=== PATIENT | female | born 1950 | race Caucasian/White ===

== ENCOUNTER 2018-03-20 11:48 | Day surgery (SDC) | payer MEDICARE ==
[~2018-03-20] VITALS: Ht 158.8 cm; Wt 81.6 kg
[2018-03-20] MEDS ORDERED: LACTATED RINGERS 1,000 ML IV SCH ×2 (12:24→21:00)
[2018-03-20] MEDS ORDERED: PLEASE ENTER HEIGHT AND WEIGHT MC SCH (13:00)
[2018-03-20] MEDS ORDERED: PLEASE ENTER ALLERGIES MC SCH (13:00)
[2018-03-20] MEDS ORDERED: TUMERIC PO (13:08)
[2018-03-20] MEDS ORDERED: ASPI-496 PO (13:08)
[2018-03-20] MEDS ORDERED: HYDR25TA6 PO (13:08)
[2018-03-20] MEDS ORDERED: MULT-658 PO (13:08)
[2018-03-20] MEDS ORDERED: AMLO5TAB7 PO (13:08)
[2018-03-20] MEDS ORDERED: OMEP10CA4 PO (13:08)
[2018-03-20] MEDS ORDERED: ATOR20TA9 PO (13:08)
[2018-03-20] MEDS ORDERED: CHOL200059 PO (13:08)
[2018-03-20 13:14] VITALS: BP 135/83
[2018-03-20 13:18] LABS: BASOPHILS # (AUTO) 0.03 x10^3/uL (0-0.1); BASOPHILS % (AUTO) 1 % (0-1); EOSINOPHILS # (AUTO) 0.27 x10^3/uL (0-0.4); EOSINOPHILS % (AUTO) 5 % (1-7); LYMPHOCYTES # (AUTO) 1.29 x10^3/uL (1-3.4); LYMPHOCYTES % (AUTO) 24 % (22-44); MD NO; MEAN CORPUSCULAR HEMOGLOBIN 29.6 pg (27.0-34.8); MEAN CORPUSCULAR HGB CONC 33.4 g/dL (32.4-35.8); MEAN CORPUSCULAR VOLUME 88.6 fL (80-100); MEAN PLATELET VOLUME 8.7 fL (7.4-10.4); MONOCYTES # (AUTO) 0.54 x10^3/uL (0.2-0.8); MONOCYTES % (AUTO) 10 % (2-9); NEUTROPHILS # (AUTO) 3.29 x10^3/uL (1.8-6.8); NEUTROPHILS % (AUTO) 61 % (42-75); PLATELET COUNT 320 x10^3/uL (130-400); RED BLOOD COUNT 4.78 x10^6/uL (3.82-5.3); RED CELL DISTRIBUTION WIDTH 14.9 % (9.6-15.2)
[2018-03-20] MEDS ORDERED: SCOPOLAMINE PATCH, 1.5MG PATCH.TD72 TD ONE (13:30)
[2018-03-20] MEDS ORDERED: ACETAMINOPHEN 500 MG TABLET PO ONE (13:30)
[2018-03-20] MEDS ORDERED: GABAPENTIN 300 MG CAPSULE PO ONE (13:30)
[2018-03-20] MEDS ORDERED: ONDANSETRON 2MG/ML, 2ML IVPush ONE (13:30)
[2018-03-20 13:31] LABS: ALANINE AMINOTRANSFERASE 48 U/L (12-78); ALBUMIN 4.1 g/dL (3.4-5.0); ANION GAP 8 mmol/L (5-15); CHLORIDE 106 mmol/L (98-107)
[2018-03-20 13:33] LABS: ALKALINE PHOSPHATASE 68 U/L (45-117); TOTAL PROTEIN 7.8 g/dL (6.4-8.2)
[2018-03-20] MEDS ORDERED: BUPIVACAINE/PF 0.5% ONE (14:00)
[2018-03-20] MEDS ORDERED: EPINEPHRINE 1 MG/ML, 1ML ONE (14:00)
[2018-03-20] MEDS ORDERED: ISOSULFAN BLUE 10 MG/ML, 5ML IV ONE (14:00)
[2018-03-20] MEDS ORDERED: MIDAZOLAM 1 MG/ML, 2ML ONE (14:27)
[2018-03-20] MEDS ORDERED: FENTANYL PF 250 MCG/5ML ONE (14:27)
[2018-03-20] MEDS ORDERED: cloniDINE/PF 100 MCG/ML, 10 ML ONE (15:01)
[2018-03-20] MEDS ORDERED: DEXAMETHASONE 4 MG/ML, 1ML ONE (16:43)
[2018-03-20] MEDS ORDERED: PROPOFOL 10 MG/ML, 20ML ONE (16:43)
[2018-03-20] MEDS ORDERED: ROCURONIUM 10 MG/ML,10ML ONE (16:43)
[2018-03-20] MEDS ORDERED: PHENYLEPHRINE 10 MG/ML ONE (16:43)
[2018-03-20] MEDS ORDERED: SUCCINYLCHOLINE 20 MG/ML, 10ML ONE (16:43)
[2018-03-20] MEDS ORDERED: CEFAZOLIN 1,000 MG ONE (16:43)
[2018-03-20] MEDS ORDERED: NEOSTIGMINE 1 MG/ML, 10ML ONE (16:43)
[2018-03-20] MEDS ORDERED: GLYCOPYRROLATE 0.2MG/1ML, 5ML ONE (16:43)
[2018-03-20] MEDS ORDERED: ONDANSETRON 2MG/ML, 2ML ONE (16:43)
[2018-03-20] MEDS ORDERED: ACETAMINOPHEN 650 MG/20.3 ML UDC ONE (19:22)
[2018-03-20] MEDS ORDERED: OXYcodone 5 MG/5 ML ORAL.SOL UDC ONE (19:23)
[2018-03-20] MEDS ORDERED: FENTANYL PF 100 MCG/2ML IV PRN (19:30)
[2018-03-20] MEDS ORDERED: OXYcodone 5 MG/5 ML ORAL.SOL UDC PO PRN (19:30)
[2018-03-20] MEDS ORDERED: ACETAMINOPHEN 325 MG TABLET PO PRN (19:30)
[2018-03-20] MEDS ORDERED: FENTANYL PF 100 MCG/2ML ONE (19:37)
[2018-03-20] MEDS ORDERED: ONDANSETRON 2MG/ML, 2ML IVPush PRN (21:00)
[2018-03-20] MEDS ORDERED: MORPHINE SULFATE 4 MG/ML, 1ML IVPush PRN (21:00)
== END 2018-03-20 23:59 | disposition home or self-care (01) ==
LOC: OUT 11:48 → 4NOR 20:05 → OUT 23:59
PROVIDERS: ATTEND Surgery
DX: D05.11 Intraductal carcinoma in situ of right breast (principal); R59.1 Generalized enlarged lymph nodes; N64.89 Other specified disorders of breast; F41.9 Anxiety disorder, unspecified; J45.909 Unspecified asthma, uncomplicated; K21.9 Gastro-esophageal reflux disease without esophagitis; E78.5 Hyperlipidemia, unspecified; I10 Essential (primary) hypertension; E66.9 Obesity, unspecified; Z79.82 Long term (current) use of aspirin; Z88.0 Allergy status to penicillin
CPT/HCPCS: 19301; 19318; 19366; 36415; 38525; 38792; 80053; 85025; 88307; 88333; 93005; A9541; C1729; J0171; J0330; J0690; J0735; J1100; J2250; J2370; J2405; J2704; J2710; J3010; J3490; J7120; G0378

== ENCOUNTER → 2018-04-06 | Outpatient (CLI) | payer MEDICARE ==
[~2018-04-06] MED LIST: AMLO5TAB7 PO; ASPI-496 PO; ATOR20TA9 PO; CHOL200059 PO; HYDR25TA6 PO; MULT-658 PO; OMEP10CA4 PO; TUMERIC PO
== END | disposition home or self-care (01) ==
LOC: ROC 10:41
PROVIDERS: ATTEND Radiology Radiation Oncology
DX: C50.411 Malignant neoplasm of upper-outer quadrant of right female breast (principal)
CPT/HCPCS: G0463

== ENCOUNTER 2018-04-19 08:20 | Day surgery (SDC) | payer MEDICARE ==
[~2018-04-19] VITALS: Ht 160 cm; Wt 81.2 kg
[~2018-04-19 08:20] MED LIST changes: +BUPIVACAINE/PF-EPI 0.5% 1:200K ONE; +HEPARIN 1,000 UNITS/ML, 10ML ONE
[2018-04-19] MEDS ORDERED: LACTATED RINGERS 1,000 ML IV SCH (08:46)
[2018-04-19] MEDS ORDERED: ONDANSETRON ODT 8 MG PO ONE (09:00)
[2018-04-19] MEDS ORDERED: ACETAMINOPHEN 500 MG TABLET PO ONE (09:00)
[2018-04-19] MEDS ORDERED: PLEASE ENTER HEIGHT AND WEIGHT MC SCH (09:00)
[2018-04-19] MEDS ORDERED: GABAPENTIN 300 MG CAPSULE PO ONE (09:00)
[2018-04-19 09:06] VITALS: BP 114/74
[2018-04-19 09:10] VITALS: BP 114/74
[2018-04-19] MEDS ORDERED: MIDAZOLAM 1 MG/ML, 2ML ONE (09:38)
[2018-04-19] MEDS ORDERED: FENTANYL PF 100 MCG/2ML ONE ×2 (09:39→10:49)
[2018-04-19] MEDS ORDERED: EPHEDRINE 50 MG/ML, 1ML ONE (09:49)
[2018-04-19] MEDS ORDERED: LIDOCAINE-MPF 2% ,5ML ONE (09:49)
[2018-04-19] MEDS ORDERED: ROCURONIUM 10MG/ML,5ML ONE (10:20)
[2018-04-19] MEDS ORDERED: GLYCOPYRROLATE 0.2MG/1ML, 5ML ONE (10:20)
[2018-04-19] MEDS ORDERED: PROPOFOL 10 MG/ML, 20ML ONE (10:20)
[2018-04-19] MEDS ORDERED: CEFAZOLIN 1,000 MG ONE (10:20)
[2018-04-19] MEDS ORDERED: DEXAMETHASONE 4 MG/ML, 1ML ONE (10:20)
[2018-04-19] MEDS ORDERED: NEOSTIGMINE 1 MG/ML, 10ML ONE (10:20)
[2018-04-19] MEDS ORDERED: SUCCINYLCHOLINE 20 MG/ML, 10ML ONE (10:20)
[2018-04-19] MEDS ORDERED: ONDANSETRON 2MG/ML, 2ML ONE (10:20)
[2018-04-19] MEDS ORDERED: OXYcodone 5 MG/5 ML ORAL.SOL UDC PO PRN (10:30)
[2018-04-19] MEDS ORDERED: HYDROmorphone 1 MG/ML, 1ML IV PRN (10:30)
[2018-04-19] MEDS ORDERED: FENTANYL PF 100 MCG/2ML IV PRN (10:30)
[2018-04-19] MEDS ORDERED: PROMETHAZINE 25 MG/ML, 1ML IV PRN (10:30)
[2018-04-19] MEDS ORDERED: OXYcodone 5 MG/5 ML ORAL.SOL UDC ONE (10:50)
== END 2018-04-19 14:35 | disposition home or self-care (01) ==
LOC: OUT 08:20
PROVIDERS: ATTEND Surgery
DX: C50.411 Malignant neoplasm of upper-outer quadrant of right female breast (principal); I10 Essential (primary) hypertension; K21.9 Gastro-esophageal reflux disease without esophagitis; F41.9 Anxiety disorder, unspecified; E78.5 Hyperlipidemia, unspecified; J45.909 Unspecified asthma, uncomplicated; Z79.899 Other long term (current) drug therapy; Z90.710 Acquired absence of both cervix and uterus; Z90.11 Acquired absence of right breast and nipple; Z68.32 Body mass index [BMI] 32.0-32.9, adult; Z88.0 Allergy status to penicillin; Z98.890 Other specified postprocedural states; Z80.3 Family history of malignant neoplasm of breast
CPT/HCPCS: 36561; 71045; 77001; C1788; J0330; J0690; J1100; J1644; J2250; J2405; J2704; J2710; J3490; J7120; Q0162; J3010

== ENCOUNTER → 2018-04-20 | Outpatient (CLI) | payer MEDICARE ==
[~2018-04-20] MED LIST changes: -BUPIVACAINE/PF-EPI 0.5% 1:200K ONE; -HEPARIN 1,000 UNITS/ML, 10ML ONE
== END | disposition home or self-care (01) ==
LOC: PETCFH 11:39
PROVIDERS: ATTEND Internal Medicine Hematology & Oncology
DX: C50.811 Malignant neoplasm of overlapping sites of right female breast (principal)
CPT/HCPCS: 78306; A9503